=== PATIENT | male | born 1970 | race Caucasian/White ===

== ENCOUNTER 2017-12-10 15:53 | Emergency (ER) | payer SELFPAY ==
[~2017-12-10] VITALS: Ht 175.3 cm; Wt 99.5 kg
[2017-12-10] MEDS ORDERED: IOHEXOL 350 MG/ML 10 ML VIAL (for RAD DIAG) IVCONTRAST ONE (15:54)
[2017-12-10 15:59] VITALS: BP 142/94; PULSE 101; RESP 20; TEMP 100; O2SAT 98
[2017-12-10] MEDS ORDERED: SODIUM CHLOR 0.9% 1000 ML INJ 1,000 ML IV SCH (16:28)
[2017-12-10] MEDS ORDERED: TETANUS/DIPHTHERIA TOXOID ADULT 0.5 ML VIAL IM ONE (16:30)
[2017-12-10] MEDS ORDERED: CLINDAMYCIN 600 MG/NS PREMIX 50 ML IV ONE (16:30)
[2017-12-10] MEDS ORDERED: SODIUM CHLORIDE 0.9% FLUSH 10 ML FLUSH IV FLUSH PRN (16:30)
--- NOTE | 2017-12-10 16:38 | PD ---
HPI Chief Complaint: Facial Pain or Swelling Time Seen by Provider: 16:15 Travel History International Travel<30 days: No Contact w/Intl Traveler<30days: No Traveled to known affect area: No History of Present Illness HPI Patient is a 47 year old male who presents to the ER for evaluation of left sided facial swelling. Reports that he noticed swelling to his lower face 2 days ago and now swelling extends to under his left eye. Reports concerns for possible MRSA infection. Denies any fever/chills. Tetanus is not up to date. Reports that he was cleaning at home 2 days ago and a bunch of debris including bugs fell onto his face. Patient unsure if he was bit by a bug [facility] Past Medical History Diabetes: Yes Patient Takes Glucophage: Yes Diminished Hearing: No Neurologic: Yes (nerve pain ) Triglycerides - High: Yes Tetanus Vaccination: Unknown Influenza Vaccination: No ?: Not Social History Alcohol Use: No Tobacco Use: No (quit smoking 10 years ago ) Substance Use: No Allergies-Medications (Allergen,Severity, Reaction): Coded Allergies: No Known Allergies (Unverified , 12/10/17) Review of Systems General / Constitutional: No: Fever Eyes: No: Visual changes HENT: No: Headaches Cardiovascular: No: Chest Pain or Discomfort Respiratory: No: Shortness of Breath Gastrointestinal: No: Abdominal Pain Genitourinary: No: Dysuria Musculoskeletal: No: Pain Skin: Positive Other (facial swelling), No Rash Neurologic: No: Weakness Psychiatric: No: Depression Endocrine: No: Polydipsia Hematologic/Lymphatic: No: Easy Bruising Physical Exam Narrative GENERAL: moderate distress SKIN: Focused skin assessment warm/dry. HEAD: Atraumatic. Normocephalic. EYES: Pupils equal and round. No scleral icterus. No injection or drainage. Patient with left-sided periorbital swelling with erythema, EOMIs intact, patient with poor dentition ENT: No nasal bleeding or discharge. Mucous membranes pink and moist. NECK: Trachea midline. No JVD. CARDIOVASCULAR: Regular rate and rhythm. No murmur appreciated. RESPIRATORY: No accessory muscle use. Clear to auscultation. Breath sounds equal bilaterally. GASTROINTESTINAL: Abdomen soft, non-tender, nondistended. Hepatic and splenic margins not palpable. MUSCULOSKELETAL: No obvious deformities. No clubbing. No cyanosis. No edema. NEUROLOGICAL: Awake and alert. No obvious cranial nerve deficits. Motor grossly within normal limits. Normal speech. PSYCHIATRIC: Appropriate mood and affect; insight and judgment normal. Data Data Last Documented VS Vital Signs Date Time Temp Pulse Resp B/P (MAP) Pulse Ox O2 Delivery O2 Flow Rate FiO2 12/10/17 15:59 100.0 101 20 142/94 (110) 98 Orders Orders Basic Metabolic Panel (Bmp) (12/10/17 16:28) Complete Blood Count With Diff (12/10/17 16:28) Prothrombin Time / Inr (Pt) (12/10/17 16:28) Act Partial Throm Time (Ptt) (12/10/17 16:28) Iv Access Insert/Monitor (12/10/17 16:28) Ecg Monitoring (12/10/17 16:28) NPO (12/10/17 16:28) Sodium Chlor 0.9% 1000 Ml Inj (Ns 1000 M (12/10/17 16:28) Sodium Chloride 0.9% Flush (Ns Flush) (12/10/17 16:30) Ct Facial Bones W Iv Contrast (12/10/17 ) Clindamycin 600 Mg/Ns Premix (Cleocin 60 (12/10/17 16:30) Tetanus/Diphtheria Tox Adult (Tetanus/Di (12/10/17 16:30) MDM Medical Decision Making Medical Screen Exam Complete: Yes Emergency Medical Condition: Yes Medical Record Reviewed: Yes Interpretation(s) Vital Signs Date Time Temp Pulse Resp B/P (MAP) Pulse Ox O2 Delivery O2 Flow Rate FiO2 12/10/17 15:59 100.0 101 20 142/94 (110) 98 Differential Diagnosis periorbital cellulitis, dental infection, mrsa, allergic reaction Narrative Course patient signed out to oncoming physician at change of shift. patient pending lab work as well as ct of facial bones. IV clindamycin has been ordered as well as tetanus booster Ankita Scott DO December 10, 2017 16:38
[2017-12-10 17:39] LABS: AUTOMATED NEUTROPHIL # 8.3 TH/MM3 (1.8-7.7); BASOPHIL # 0.1 TH/MM3 (0-0.2); BASOPHIL % 0.5 % (0.0-2.0); EOSINOPHIL % 0.4 % (0.0-4.0); HEMATOCRIT 41.5 % (39.0-51.0); HEMOGLOBIN 14.7 GM/DL (13.0-17.0); LYMPH % 8.4 % (9.0-44.0); LYMPHOCYTE # 0.8 TH/MM3 (1.0-4.8); MEAN CELL VOLUME 88.5 FL (80.0-100.0); MEAN CORPUSCULAR HEMOGLOBIN 31.2 PG (27.0-34.0); MEAN CORPUSCULAR HGB CONC 35.3 % (32.0-36.0); MEAN PLATELET VOLUME 8.8 FL (7.0-11.0); MONO % 7.7 % (0.0-8.0); MONOCYTE # 0.8 TH/MM3 (0-0.9); PLATELET COUNT 229 TH/MM3 (150-450); RED BLOOD COUNT 4.69 MIL/MM3 (4.50-5.90); RED CELL DISTRIBUTION WIDTH 13.8 % (11.6-17.2); WHITE BLOOD COUNT 10.1 TH/MM3 (4.0-11.0)
[2017-12-10 17:45] LABS: PROTHROMBIN TIME - PATIENT 10.4 SEC (9.8-11.6)
[2017-12-10 18:09] LABS: CALCIUM 9.2 MG/DL (8.5-10.1); CREATININE 0.89 MG/DL (0.60-1.30)
--- NOTE | 2017-12-10 19:39 | RADRPT ---
EXAM DATE/TIME: 12/10/2017 19:10 [facility] COMPARISON: No previous studies available for comparison. INDICATIONS : Left side facial swelling IV CONTRAST: 75 cc Omnipaque 350 (iohexol) IV RADIATION DOSE: 61.98 CTDIvol (mGy) MEDICAL HISTORY : Diabetes,Hyperlipidemia SURGICAL HISTORY : None. ENCOUNTER: Initial ACUITY: 1 day PAIN SCALE: 6/10 LOCATION: Left facial TECHNIQUE: Volumetric scanning of the facial bones was performed. Using automated exposure control and adjustme nt of the mA and/or kV according to patient size, radiation dose was kept as low as reasonably achiev able to obtain optimal diagnostic quality images. DICOM format image data is available electronicall y for review and comparison. FINDINGS: There is induration within the subcutaneous fat at the left buccal/cheek region. No focal fluid colle ction is seen. ORBITS: The orbital and infraorbital osseous structures are intact. The retroconal structures have a normal configuration. No radiopaque foreign bodies are seen. NASAL BONE: The nasal bone and maxillary spine are intact ZYGOMATIC ARCHES: Symmetric without evidence of fracture. SINUSES: There is minimal left maxillary sinus disease. The right maxillary, ethmoid and frontal sinuses are i ntact. No air-fluid levels seen. NASAL CAVITY: The nasal septum is intact and midline. The lacrimal ducts are intact. SOFT TISSUES: No radiopaque foreign bodies seen. Again noted is the induration and edema within the left buccal/juan ramon ek region. INTRACRANIAL: No intracranial air seen. CRIBIFORM PLATE: Grossly intact. CONCLUSION: Focal induration of the fat at the left buccal/cheek region likely related to cellulitis or posttraum atic. Marcos Charles MD on December 10, 2017 at 19:32 Board Certified Radiologist. This report was verified electronically.
--- NOTE | 2017-12-10 19:40 | PD ---
Physical Exam Narrative Received sign out from previous provider to follow up with CT scan. 47yo M with left sided facial pain and swelling for a few days. Labs reviewed, no leukocytosis. H/H normal. BMP unremarkable. Pt given tetanus and clindamycin. CT facial with IV contrast showed focal induration of the fat at the left buccal/check region likely related to cellulitis. No focal fluid collection is seen. Pt given toradol which helped with pain. He is nontoxic appearing and tolerating PO. Return precautions given. Data Data Last Documented VS Vital Signs Date Time Temp Pulse Resp B/P (MAP) Pulse Ox O2 Delivery O2 Flow Rate FiO2 12/10/17 20:50 12/10/17 19:46 100.0 92 16 98 Room Air Orders Orders Basic Metabolic Panel (Bmp) (12/10/17 16:28) Complete Blood Count With Diff (12/10/17 16:28) Prothrombin Time / Inr (Pt) (12/10/17 16:28) Act Partial Throm Time (Ptt) (12/10/17 16:28) Iv Access Insert/Monitor (12/10/17 16:28) Ecg Monitoring (12/10/17 16:28) NPO (12/10/17 16:28) Sodium Chlor 0.9% 1000 Ml Inj (Ns 1000 M (12/10/17 16:28) Sodium Chloride 0.9% Flush (Ns Flush) (12/10/17 16:30) Ct Facial Bones W Iv Contrast (12/10/17 ) Clindamycin 600 Mg/Ns Premix (Cleocin 60 (12/10/17 16:30) Tetanus/Diphtheria Tox Adult (Tetanus/Di (12/10/17 16:30) Iohexol 350 Inj (Omnipaque 350 Inj) (12/10/17 15:54) Ketorolac Inj (Toradol Inj) (12/10/17 19:45) Ed Discharge Order (12/10/17 20:19) Labs Laboratory Tests Test 12/10/17 17:05 White Blood Count 10.1 TH/MM3 Red Blood Count 4.69 MIL/MM3 Hemoglobin 14.7 GM/DL Hematocrit 41.5 % Mean Corpuscular Volume 88.5 FL Mean Corpuscular Hemoglobin 31.2 PG Mean Corpuscular Hemoglobin Concent 35.3 % Red Cell Distribution Width 13.8 % Platelet Count 229 TH/MM3 Mean Platelet Volume 8.8 FL Neutrophils (%) (Auto) 83.0 % Lymphocytes (%) (Auto) 8.4 % Monocytes (%) (Auto) 7.7 % Eosinophils (%) (Auto) 0.4 % Basophils (%) (Auto) 0.5 % Neutrophils # (Auto) 8.3 TH/MM3 Lymphocytes # (Auto) 0.8 TH/MM3 Monocytes # (Auto) 0.8 TH/MM3 Eosinophils # (Auto) 0.0 TH/MM3 Basophils # (Auto) 0.1 TH/MM3 CBC Comment DIFF FINAL Differential Comment Prothrombin Time 10.4 SEC Prothromb Time International Ratio 1.0 RATIO Activated Partial Thromboplast Time 27.2 SEC Blood Urea Nitrogen 16 MG/DL Creatinine 0.89 MG/DL Random Glucose 109 MG/DL Calcium Level 9.2 MG/DL Sodium Level 140 MEQ/L Potassium Level 4.0 MEQ/L Chloride Level 105 MEQ/L Carbon Dioxide Level 25.0 MEQ/L Anion Gap 10 MEQ/L Estimat Glomerular Filtration Rate 92 ML/MIN MDM Supervised Visit with PANCHO: No Diagnosis Primary Impression: Facial cellulitis Patient Instructions: General Instructions Departure Forms: Tests/Procedures Additional Instruction: Please follow up with your primary care physician in 2-3 days. Return to the ED if symptoms worsen. Med/Other Pt SpecificInfo: Prescription(s) given Scripts Acetaminophen (Tylenol) 325 Mg Tab 650 MG PO Q6H Y for PAIN SCALE 1 TO 4, #20 TAB 0 Refills Prov: AnayRubi DO 12/10/17 Clindamycin (Clindamycin) 150 Mg Cap 300 MG PO Q6H for Infection for 10 Days, #80 CAP 0 Refills Prov: AnayRubi DO 12/10/17 Disposition: 01 DISCHARGE HOME Condition: Stable CuevaRubi lee December 10, 2017 19:40
[2017-12-10] MEDS ORDERED: KETOROLAC TROMETHAMINE 30 MG/ML (IVP) VIAL IV PUSH ONE (19:45)
[2017-12-10 19:46] VITALS: BP 167/78; PULSE 92; RESP 16; TEMP 100; O2SAT 98
[2017-12-10] MEDS ORDERED: TYLE325T PO ×2 (20:32→20:56)
[2017-12-10] MEDS ORDERED: CLIN150C14 PO (20:32)
== END 2017-12-10 20:52 | disposition home or self-care (01) ==
LOC: NEPD 15:53
DX: L03.211 Cellulitis of face (principal); Z87.891 Personal history of nicotine dependence; Z23 Encounter for immunization
CPT/HCPCS: 70487; 80048; 85025; 85610; 85730; 90471; 90714; 96365; 96376; 99284; J1885; J7030; Q9967